=== PATIENT | female | born 1965 | race Caucasian/White ===

== ENCOUNTER 2018-01-01 13:41 | Emergency (ER) | payer MEDICARE, SELFPAY ==
[~2018-01-01] VITALS: Ht 170.2 cm; Wt 110.7 kg
[~2018-01-01 13:41] MED LIST: ACET325 PO; ALBU90OI INH; AMIT50 PO; ATOR40TA PO; BUSP10 PO; CALCAVITD; CALCAVITD PO; CEPH250SUA PO; CEPH500 PO; CHOL10002 PO; CLON.5 PO; CLOP75 PO; CYCL10 PO; Calcium/Vitamin D (6; Cyclobenzaprine5 MG PO; DULO30 PO; ENOX40I SC; ESOM20 PO; FLUSAL1005 IH; FLUSAL2505 INH; GAVILAX17 GM PO; HYDACE10B PO; HYDACE5325 PO; HYDHCL25 PO; HYOS.125 SL; IBUP800 PO; Isosorbide Mono30 MG PO; LISHYD1012 PO; LISI5 PO; LOVA20 PO; METF500 PO; METO25ER PO; Nitrostat0.4 MG SL; Norco 10-325 T1 EACH PO; OSEL75CA PO; OXYB5 PO; Omeprazole20 M1 PO; PROM25 PO; SUCR1 PO; TUDORZA PRESS400 MCG INH; Tapazole5 MG PO; VARE1 PO; Zanaflex4 M1 PO
[2018-01-01 14:39] LABS: BASOPHILS ABSOLUTE AUTO 0.11 K/mm3 (0.00-0.23); BASOPHILS PERCENT AUTO 1 % (0-2); EOSINOPHILS ABSOLUTE AUTO 0.39 K/mm3 (0.00-0.68); EOSINOPHILS PERCENT AUTO 4 % (0-6); Hematocrit 37.9 % (33.0-51.0); Hemoglobin 12.9 g/dL (11.5-16.0); IMMATURE GRAN ABSOLUTE AUTO 0.06 K/mm3 (0.00-0.10); IMMATURE GRAN PERCENT AUTO 1 % (0-1); LYMPHOCYTES ABSOLUTE AUTO 3.97 K/mm3 (0.84-5.20); LYMPHOCYTES PERCENT AUTO 35 % (21-46); MONOCYTES PERCENT AUTO 5 % (4-13); Mean Corpuscular HGB 31.8 pg (26.0-34.0); Mean Corpuscular Volume 93 fL (80-100); NEUTROPHILS ABSOLUTE AUTO 6.12 K/mm3 (1.96-9.15); NEUTROPHILS PERCENT AUTO 54 % (41-73); Platelet Count 291 K/mm3 (150-400); RDW Coefficient Variation 14.6 % (11.7-14.2); RDW Standard Deviation 50.4 fL (35.1-46.3); Red Blood Cell Count 4.06 M/mm3 (3.80-5.20); White Blood Cell Count 11.25 K/mm3 (4.00-11.30)
[2018-01-01 14:59] LABS: Albumin, Blood 3.5 g/dL (3.4-5.0); Bilirubin, Total 0.2 mg/dL (0.1-1.0); Calcium, Blood 8.5 mg/dL (8.5-10.1); Creatinine, Blood 2.37 mg/dL (0.40-1.00); Globulin, Blood 3.4 g/dL (2.2-4.0); Potassium, Blood 3.9 mmol/L (3.5-5.5); Total Protein, Blood 6.9 g/dL (6.4-8.2)
[2018-01-01] MEDS ORDERED: OXYC1TAB11 (16:11)
[2018-01-01] MEDS ORDERED: Prednisone20 MG PO (17:29)
== END 2018-01-01 17:41 | disposition home or self-care (01) ==
LOC: ER 13:41
PROVIDERS: Emergency Medicine
DX: R51 Headache (principal); R20.2 Paresthesia of skin; Z88.8 Allergy status to other drugs, medicaments and biological substances; Z88.2 Allergy status to sulfonamides; Z88.5 Allergy status to narcotic agent; Z79.899 Other long term (current) drug therapy; Z79.84 Long term (current) use of oral hypoglycemic drugs; E11.9 Type 2 diabetes mellitus without complications; I10 Essential (primary) hypertension; F17.200 Nicotine dependence, unspecified, uncomplicated; R90.82 White matter disease, unspecified
CPT/HCPCS: 36415; 70450; 70551; 80053; 85025; 93005; 93010; 96361; 96374; 96375; 99284; J1200; J1885; J2765; J2930; J7030

== ENCOUNTER 2018-01-22 16:29 | Inpatient (IN) | payer MEDICARE, SELFPAY ==
[~2018-01-22] VITALS: Ht 170.2 cm; Wt 118.0 kg
[~2018-01-22 16:29] MED LIST changes: +METHI10 PO; +OXYC1TAB11 PO; +Prednisone20 MG PO; -Tapazole5 MG PO
[2018-01-22 18:14] LABS: BASOPHILS ABSOLUTE AUTO 0.05 K/mm3 (0.00-0.23); BASOPHILS PERCENT AUTO 1 % (0-2); EOSINOPHILS PERCENT AUTO 3 % (0-6); Hematocrit 31.1 % (33.0-51.0); Hemoglobin 10.3 g/dL (11.5-16.0); IMMATURE GRAN ABSOLUTE AUTO 0.02 K/mm3 (0.00-0.10); IMMATURE GRAN PERCENT AUTO 0 % (0-1); LYMPHOCYTES ABSOLUTE AUTO 2.23 K/mm3 (0.84-5.20); LYMPHOCYTES PERCENT AUTO 36 % (21-46); MONOCYTES ABSOLUTE AUTO 0.36 K/mm3 (0.16-1.47); MONOCYTES PERCENT AUTO 6 % (4-13); Mean Corpuscular HGB 31.9 pg (26.0-34.0); Mean Corpuscular HGB Conc 33.1 g/dL (31.5-36.5); Mean Corpuscular Volume 96 fL (80-100); Mean Platelet Volume 10.4 fL (9.1-12.4); NEUTROPHILS ABSOLUTE AUTO 3.26 K/mm3 (1.96-9.15); NEUTROPHILS PERCENT AUTO 53 % (41-73); Platelet Count 236 K/mm3 (150-400); RDW Coefficient Variation 14.6 % (11.7-14.2); RDW Standard Deviation 51.9 fL (35.1-46.3); Red Blood Cell Count 3.23 M/mm3 (3.80-5.20); White Blood Cell Count 6.12 K/mm3 (4.00-11.30)
[2018-01-22 18:36] LABS: Troponin I <0.015 ng/mL (0.000-0.040)
[2018-01-22 18:38] LABS: Alanine Aminotransfer (ALT/SGP 20 U/L (12-78); Albumin, Blood 2.8 g/dL (3.4-5.0); Albumin/Globulin Ratio 0.8 (0.8-1.8); Alk Phos 73 U/L (50-136); Anion Gap 6 mmol/L (6-16); Aspartate Aminotrans (AST/SGOT 11 U/L (12-37); Bilirubin, Total 0.2 mg/dL (0.1-1.0); Blood Urea Nitrogen 22 mg/dL (8-24); Bun/Creatinine Ratio 22.7 (12.0-20.0); CO2, Blood 27 mmol/L (21-32); Calcium, Blood 8.8 mg/dL (8.5-10.1); Chloride, Blood 108 mmol/L (98-108); Creatinine, Blood 0.97 mg/dL (0.40-1.00); Globulin, Blood 3.4 g/dL (2.2-4.0); Glomerular Filtration Rate >60 (60-); Glucose, Blood 123 mg/dL (70-99); Potassium, Blood 3.6 mmol/L (3.5-5.5); Sodium, Blood 141 mmol/L (136-145); Total Protein, Blood 6.2 g/dL (6.4-8.2)
[2018-01-22 19:17] LABS: Source, Urine Clean Catch
[2018-01-22 19:26] LABS: Appearance, Urine Clear (Clear); Bilirubin, Urine Neg (Neg); Blood, Urine Neg (Neg); Color, Urine Yellow (P-Yellow); Glucose Qualitative, Urine Neg (Neg); Ketones, Urine Neg (Neg); Leukocyte Esterase, Urine 1+ (Neg); Nitrite, Urine Neg (Neg); Protein, Urine Neg (Neg); Specific Gravity, Urine 1.015 (1.003-1.022); Urobilinogen, Urine 1+ (Normal)
[2018-01-22 19:32] LABS: Squamous Epithelial Cells Few /hpf (Few)
[2018-01-22 19:33] LABS: Bacteria Few /hpf; Red Blood Cells, Urine 0-2 /hpf (0-2)
[2018-01-22 20:40] LABS: CPK Creatine Kinase 28 U/L (26-193); Troponin I <0.015 ng/mL (0.000-0.040)
[2018-01-23 04:18] LABS: BASOPHILS ABSOLUTE AUTO 0.03 K/mm3 (0.00-0.23); BASOPHILS PERCENT AUTO 1 % (0-2); EOSINOPHILS PERCENT AUTO 4 % (0-6); Hematocrit 30.2 % (33.0-51.0); IMMATURE GRAN ABSOLUTE AUTO 0.01 K/mm3 (0.00-0.10); IMMATURE GRAN PERCENT AUTO 0 % (0-1); LYMPHOCYTES ABSOLUTE AUTO 2.22 K/mm3 (0.84-5.20); LYMPHOCYTES PERCENT AUTO 40 % (21-46); MONOCYTES ABSOLUTE AUTO 0.35 K/mm3 (0.16-1.47); MONOCYTES PERCENT AUTO 6 % (4-13); Mean Corpuscular HGB 31.9 pg (26.0-34.0); Mean Corpuscular HGB Conc 33.1 g/dL (31.5-36.5); Mean Corpuscular Volume 97 fL (80-100); Mean Platelet Volume 10.1 fL (9.1-12.4); NEUTROPHILS ABSOLUTE AUTO 2.75 K/mm3 (1.96-9.15); NEUTROPHILS PERCENT AUTO 50 % (41-73); Platelet Count 204 K/mm3 (150-400); RDW Coefficient Variation 14.6 % (11.7-14.2); RDW Standard Deviation 51.8 fL (35.1-46.3); Red Blood Cell Count 3.13 M/mm3 (3.80-5.20); White Blood Cell Count 5.56 K/mm3 (4.00-11.30)
[2018-01-23 04:40] LABS: Alanine Aminotransfer (ALT/SGP 16 U/L (12-78); Albumin, Blood 2.5 g/dL (3.4-5.0); Albumin/Globulin Ratio 0.8 (0.8-1.8); Alk Phos 68 U/L (50-136); Anion Gap 5 mmol/L (6-16); Aspartate Aminotrans (AST/SGOT 14 U/L (12-37); Bilirubin, Total 0.1 mg/dL (0.1-1.0); Blood Urea Nitrogen 20 mg/dL (8-24); Bun/Creatinine Ratio 22.4 (12.0-20.0); CO2, Blood 28 mmol/L (21-32); CPK Creatine Kinase 25 U/L (26-193); Calcium, Blood 8.4 mg/dL (8.5-10.1); Chloride, Blood 110 mmol/L (98-108); Creatinine, Blood 0.89 mg/dL (0.40-1.00); Glomerular Filtration Rate >60 (60-); Glucose, Blood 109 mg/dL (70-99); Potassium, Blood 3.8 mmol/L (3.5-5.5); Sodium, Blood 143 mmol/L (136-145); Total Protein, Blood 5.5 g/dL (6.4-8.2); Troponin I <0.015 ng/mL (0.000-0.040)
[2018-01-25 05:10] LABS: BASOPHILS ABSOLUTE AUTO 0.04 K/mm3 (0.00-0.23); BASOPHILS PERCENT AUTO 1 % (0-2); EOSINOPHILS ABSOLUTE AUTO 0.17 K/mm3 (0.00-0.68); EOSINOPHILS PERCENT AUTO 3 % (0-6); Hematocrit 30.9 % (33.0-51.0); Hemoglobin 10.3 g/dL (11.5-16.0); IMMATURE GRAN ABSOLUTE AUTO 0.01 K/mm3 (0.00-0.10); IMMATURE GRAN PERCENT AUTO 0 % (0-1); LYMPHOCYTES ABSOLUTE AUTO 2.27 K/mm3 (0.84-5.20); LYMPHOCYTES PERCENT AUTO 41 % (21-46); MONOCYTES ABSOLUTE AUTO 0.32 K/mm3 (0.16-1.47); MONOCYTES PERCENT AUTO 6 % (4-13); Mean Corpuscular HGB 31.9 pg (26.0-34.0); Mean Corpuscular HGB Conc 33.3 g/dL (31.5-36.5); Mean Corpuscular Volume 96 fL (80-100); Mean Platelet Volume 10.4 fL (9.1-12.4); NEUTROPHILS ABSOLUTE AUTO 2.73 K/mm3 (1.96-9.15); NEUTROPHILS PERCENT AUTO 49 % (41-73); Platelet Count 276 K/mm3 (150-400); RDW Coefficient Variation 14.4 % (11.7-14.2); RDW Standard Deviation 49.8 fL (35.1-46.3); Red Blood Cell Count 3.23 M/mm3 (3.80-5.20); White Blood Cell Count 5.54 K/mm3 (4.00-11.30)
[2018-01-25 05:40] LABS: Alanine Aminotransfer (ALT/SGP 19 U/L (12-78); Albumin, Blood 2.6 g/dL (3.4-5.0); Albumin/Globulin Ratio 0.9 (0.8-1.8); Alk Phos 59 U/L (50-136); Anion Gap 6 mmol/L (6-16); Aspartate Aminotrans (AST/SGOT 14 U/L (12-37); Bilirubin, Total 0.3 mg/dL (0.1-1.0); Blood Urea Nitrogen 20 mg/dL (8-24); Bun/Creatinine Ratio 21.1 (12.0-20.0); CO2, Blood 28 mmol/L (21-32); Calcium, Blood 8.8 mg/dL (8.5-10.1); Chloride, Blood 107 mmol/L (98-108); Creatinine, Blood 0.95 mg/dL (0.40-1.00); Globulin, Blood 2.9 g/dL (2.2-4.0); Glomerular Filtration Rate >60 (60-); Glucose, Blood 87 mg/dL (70-99); Potassium, Blood 3.9 mmol/L (3.5-5.5); Sodium, Blood 141 mmol/L (136-145); Total Protein, Blood 5.5 g/dL (6.4-8.2)
== END 2018-01-27 17:35 | disposition home or self-care (01) | DRG 229 ==
LOC: ER 16:29 → MEDS 16:30 → ICUE 01-27 07:51
PROVIDERS: Emergency Medicine; Internal Medicine
PROC: 4A023N7 Measurement of Cardiac Sampling and Pressure, Left Heart, Percutaneous Approach (ICD-10-PCS; principal; 2018-01-26)
PROC: 027105Z Dilation of Coronary Artery, Two Arteries with Two Drug-eluting Intraluminal Devices, Open Approach (ICD-10-PCS; 2018-01-26)
PROC: B211YZZ Fluoroscopy of Multiple Coronary Arteries using Other Contrast (ICD-10-PCS; 2018-01-26)
DX: I25.10 Atherosclerotic heart disease of native coronary artery without angina pectoris (principal); N39.0 Urinary tract infection, site not specified; K21.9 Gastro-esophageal reflux disease without esophagitis; I10 Essential (primary) hypertension; G89.4 Chronic pain syndrome; E11.9 Type 2 diabetes mellitus without complications; Z79.4 Long term (current) use of insulin
CPT/HCPCS: 36415; 71046; 80053; 81001; 82550; 82947; 83880; 84443; 84484; 85025; 85347; 87077; 87086; 87186; 92978; 93005; 93010; 93306; 93454; 96372; 96374; 96375; 96376; 99152; 99153; 99285; C1725; C1753; C1760; C1769; C1874; C1894; C9600; G0378; J0696; J1644; J1650; J2250; J3010; J7030; Q9967

== ENCOUNTER 2019-01-05 11:48 | Emergency (ER) | payer MEDICARE ==
[~2019-01-05] VITALS: Ht 170.2 cm; Wt 96.2 kg
[2019-01-05 12:31] LABS: BASOPHILS ABSOLUTE AUTO 0.09 K/mm3 (0.00-0.23); BASOPHILS PERCENT AUTO 1 % (0-2); EOSINOPHILS ABSOLUTE AUTO 0.49 K/mm3 (0.00-0.68); EOSINOPHILS PERCENT AUTO 4 % (0-6); Hematocrit 46.7 % (33.0-51.0); Hemoglobin 15.2 g/dL (11.5-16.0); IMMATURE GRAN ABSOLUTE AUTO 0.02 K/mm3 (0.00-0.10); IMMATURE GRAN PERCENT AUTO 0 % (0-1); LYMPHOCYTES ABSOLUTE AUTO 2.03 K/mm3 (0.84-5.20); LYMPHOCYTES PERCENT AUTO 16 % (21-46); MONOCYTES ABSOLUTE AUTO 0.46 K/mm3 (0.16-1.47); MONOCYTES PERCENT AUTO 4 % (4-13); Mean Corpuscular HGB 30.8 pg (26.0-34.0); Mean Corpuscular HGB Conc 32.5 g/dL (31.5-36.5); Mean Corpuscular Volume 95 fL (80-100); Mean Platelet Volume 11.6 fL (9.1-12.4); NEUTROPHILS ABSOLUTE AUTO 9.45 K/mm3 (1.96-9.15); NEUTROPHILS PERCENT AUTO 75 % (41-73); Platelet Count 267 K/mm3 (150-400); RDW Coefficient Variation 13.2 % (11.7-14.2); RDW Standard Deviation 46.7 fL (35.1-46.3); Red Blood Cell Count 4.94 M/mm3 (3.80-5.20); White Blood Cell Count 12.54 K/mm3 (4.00-11.30)
[2019-01-05 13:00] LABS: Alanine Aminotransfer (ALT/SGP 17 U/L (12-78); Albumin, Blood 4.2 g/dL (3.4-5.0); Alk Phos 112 U/L (50-136); Anion Gap 6 mmol/L (6-16); Aspartate Aminotrans (AST/SGOT 13 U/L (12-37); Bilirubin, Total 0.4 mg/dL (0.1-1.0); Blood Urea Nitrogen 13 mg/dL (8-24); Bun/Creatinine Ratio 14.5 (12.0-20.0); CO2, Blood 29 mmol/L (21-32); Calcium, Blood 10.1 mg/dL (8.5-10.1); Chloride, Blood 103 mmol/L (98-108); Glomerular Filtration Rate >60 (60-); Glucose, Blood 92 mg/dL (70-99); Potassium, Blood 3.7 mmol/L (3.5-5.5); Sodium, Blood 138 mmol/L (136-145); Total Protein, Blood 8.2 g/dL (6.4-8.2)
== END 2019-01-05 17:38 | disposition home or self-care (01) ==
LOC: ER 11:48
PROVIDERS: Physician Assistant
DX: Q52.4 Other congenital malformations of vagina (principal); E11.9 Type 2 diabetes mellitus without complications; I10 Essential (primary) hypertension; F17.200 Nicotine dependence, unspecified, uncomplicated; Z79.899 Other long term (current) drug therapy; Z79.02 Long term (current) use of antithrombotics/antiplatelets; Z79.84 Long term (current) use of oral hypoglycemic drugs; Z91.030 Bee allergy status; Z88.2 Allergy status to sulfonamides; Z88.6 Allergy status to analgesic agent; Z88.5 Allergy status to narcotic agent; Z88.8 Allergy status to other drugs, medicaments and biological substances
CPT/HCPCS: 36415; 72193; 80053; 85025; 99284-25; Q9967

== ENCOUNTER 2019-04-13 06:45 | Day surgery (SDC) | payer MEDICARE, OTHER ==
[~2019-04-13] VITALS: Ht 172.7 cm; Wt 96.0 kg
[2019-04-13] MEDS ORDERED: NITRO PATCH TD (08:00)
[2019-04-13] MEDS ORDERED: TIZANIDINE HCL2 MG PO (08:02)
[2019-04-13] MEDS ORDERED: POLYETHYLENE GLY1 GM (08:04)
[2019-04-13] MEDS ORDERED: SUCR1 PO (08:05)
[2019-04-13] MEDS ORDERED: Voltaren100 GM TOP (08:07)
[2019-04-13] MEDS ORDERED: IBUP800 PO (08:08)
[2019-04-13] MEDS ORDERED: METO25ER (08:08)
[2019-04-13] MEDS ORDERED: Nitrostat0.4 MG SL (08:11)
[2019-04-13] MEDS ORDERED: Ventolin/Prove6.7 GM INH (08:13)
--- NOTE | 2019-04-13 13:01 | NUR ---
PT DRESSED, IV DC'D INTACT, DC INSTRUCTIONS GIVEN, R FEM GROIN SITE STABLE, SOFT/NON-TENDER. PT DC'D W FAMILY DRIVING PT HOME BY WC W ESCORT
== END 2019-04-13 12:45 | disposition home or self-care (01) ==
LOC: MHTC 06:45
DX: I25.10 Atherosclerotic heart disease of native coronary artery without angina pectoris (principal); I10 Essential (primary) hypertension; E11.9 Type 2 diabetes mellitus without complications; K21.9 Gastro-esophageal reflux disease without esophagitis; J44.9 Chronic obstructive pulmonary disease, unspecified; G43.909 Migraine, unspecified, not intractable, without status migrainosus; E78.5 Hyperlipidemia, unspecified; E66.9 Obesity, unspecified; Z79.899 Other long term (current) drug therapy; Z79.01 Long term (current) use of anticoagulants; Z87.891 Personal history of nicotine dependence; Z88.5 Allergy status to narcotic agent; Z88.6 Allergy status to analgesic agent; Z88.2 Allergy status to sulfonamides
CPT/HCPCS: 82947; 93458; 99152; 99153; C1769; J1644; J2250; J3010; J7030; Q9967

== ENCOUNTER → 2019-04-28 | Outpatient (CLI) | payer MEDICARE, OTHER ==
[~2019-04-28] MED LIST changes: +METO25ER; +NITRO PATCH TD; +POLYETHYLENE GLY1 GM; +TIZANIDINE HCL2 MG PO; +Ventolin/Prove6.7 GM INH; +Voltaren100 GM TOP
== END | disposition home or self-care (01) ==
LOC: LAB SHORT 10:00 → LAB EV 10:00
DX: Z51.81 Encounter for therapeutic drug level monitoring (principal); Z79.899 Other long term (current) drug therapy
CPT/HCPCS: G0480